=== PATIENT | female | born 1945 | race Caucasian/White ===

== ENCOUNTER 2022-07-20 12:34 | Outpatient (CLI) | payer MEDICARE, SELFPAY ==
--- NOTE | 2022-07-20 13:15 | ECG_ITS ---
Measurements Intervals [place] Rate: 56 P: 57 MT: 170 QRS: -4 QRSD: 98 T: 36 QT: 416 QTc: 403 Interpretive Statements SINUS BRADYCARDIA LOW-VOLTAGE QRS IN LIMB LEADS INCOMPLETE RIGHT BUNDLE BRANCH BLOCK BORDERLINE ECG NO PREVIOUS ECG AVAILABLE FOR COMPARISON Electronically Signed On 07-20-2022 15:23:00 CDT by Krystian Crowley M.D.
== END 2022-07-20 12:35 | disposition home or self-care (01) ==
LOC: ANHIMG 12:42
PROVIDERS: PCP Family Medicine; Visit Provider Physician Assistant Medical
DX: R06.00 Dyspnea, unspecified (principal); I45.19 Other right bundle-branch block
CPT/HCPCS: 93005

== ENCOUNTER 2023-09-23 14:15 | Emergency (ER) | payer MEDICARE, SELFPAY ==
[2023-09-23 14:19] VITALS: BP 213/88; PULSE 86; RESP 16; TEMP 37.4; O2SAT 96
[2023-09-23 15:32] VITALS: BP 172/91; PULSE 80; RESP 17; O2SAT 97
--- NOTE | 2023-09-23 17:05 | ED.EPISTAXIS ---
HPI - Epistaxis General Chief complaint: Epistaxis Stated complaint: nose bleeds Time Seen by Provider: 09/23/23 16:03 History of Present Illness HPI Narrative: This 78-year-old female, with no significant past medical history, who presents to the emergency department complaining of intermittent nosebleeds for the past days. She states she her bleeds have stopped with direct pressure after approximately 30 minutes. They can happen spontaneously, though also happen with crying. She states she has baseline dyspnea on exertion that has not worsened. Related Data Home Medications Medication Instructions Recorded Confirmed cholecalciferol (vitamin D3) 125 125 mcg PO DAILY 07/12/21 08/10/23 mcg (5,000 unit) capsule [id number]-[id number]-ayeybla-folic 1 tablet PO DAILY 07/12/21 08/10/23 acid 400 mcg-vit K1 20 mcg tablet (One-A-Day Women's 50 Plus) Allergies Allergy/AdvReac Type Severity Reaction Status Date / Time amoxicillin AdvReac Unknown Nausea and Verified 09/23/23 15:29 Vomiting clavulanic acid AdvReac Unknown Nausea and Verified 09/23/23 15:29 Vomiting Review of Systems Review of Systems: CONSTITUTIONAL: Denies fever, chills, or sweats. ENT: Intermittent epistaxis Denies rhinorrhea, congestion, sore throat, or otalgia. CARDIOVASCULAR: Denies chest pain, palpitations, or edema. RESPIRATORY: Baseline dyspnea on exertion Denies cough GASTROINTESTINAL: Denies abdominal pain, nausea, vomiting, or diarrhea. NEUROLOGIC: Denies headache, numbness, dizziness, or weakness. PSYCHIATRIC: Denies anxiety or depression. [facility] Past Medical History Medical History (Updated 09/24/23 @ 01:51 by Ralph Estrada MD) Anxiety Depression Dyspnea Fatigue Hypertension Ovarian tumor Shortness of breath Surgical History Surgical History H/O arthroscopic knee surgery H/O: hysterectomy Family History Family History Sibling Family history of condition Patient's sister is Father Family history of coronary artery disease Patient's father is Mother Family history of malignant neoplasm of ovary Patient's mother is Social History Social History Smoking status: Former smoker Second hand tobacco smoke exposure: Yes Smoking end date: 08/30/19 Additional smoking assessment comments: 30+ pack year Alcohol intake: current Drinks per week: 2 Substance use: never Substance use type: does not use Exam Narrative: GENERAL: Well-developed, well-nourished, and in no acute distress. HEAD: Normocephalic, atraumatic. EYES: PERRLA and EOMI. ENT: There appears to be a small area of erythematous friable tissue at the right nare. There is small amount dried blood at the right nare without active bleeding. Nares clear, no rhinorrhea or epistaxis. Mucous membranes moist. Oropharynx without tonsillar hypertrophy exudate or other lesions. CHEST: Clear to auscultation. No respiratory distress. No wheezes rales or rhonchi HEART: Regular rate and rhythm. No murmur heard. Normal peripheral pulses. EXTREMITIES: Normal range of motion. No edema. NEURO: Alert and oriented x3. No focal deficit. Moving all 4 limbs spontaneously PSYCH: Normal mood and affect. Course Course Emergency Course: 17:29 - Exam demonstrates friable appearing tissue in the right near ease. The patient does not have any active ongoing bleeding and with bleeding stopping with direct pressure, will discharge with recommendation for saline nasal spray and follow up with a primary care doctor. Discussed return and emergency precautions including signs/symptoms of symptomatic anemia and airway compromise. The patient voiced understanding and is comfortable with the plan. All questions answered to her satis
[2023-09-23 17:07] VITALS: BP 156/76; PULSE 68; RESP 20; O2SAT 97
== END 2023-09-23 17:44 | disposition home or self-care (01) ==
PROVIDERS: Emergency Provider Preventive Medicine Aerospace Medicine; PCP Family Medicine
DX: R04.0 Epistaxis (principal); I10 Essential (primary) hypertension; Z87.891 Personal history of nicotine dependence
CPT/HCPCS: 99283

== ENCOUNTER 2024-07-23 14:37 | Outpatient (CLI) | payer MEDICARE, SELFPAY ==
[2024-07-23 14:56] LABS: Basophils Absolute Auto 0.1 K/mm3 (0.0-0.1); Eosinophils Absolute Auto 0.3 K/mm3 (0-0.3); Eosinophils Percent Auto 4.1 % (0-4.4); Hematocrit 38.8 % (37.0-47.0); Hemoglobin 12.9 g/dL (12.0-15.0); Immature Granulocyte Absolute 0.01 K/mm3 (0.00-0.031); Immature Granulocyte Percent A 0.1 % (0-0.5); Lymphocytes Absolute Auto 2.03 K/mm3 (0.9-3.2); Lymphocytes Percent Auto 29.7 % (18.3-44.2); Mean Corpuscular HGB Conc 33.2 g/dl (32-36); Mean Corpuscular Volume 99.2 fl (80-100); Mean Platelet Volume 9.9 fl (7.4-10.4); Monocytes Absolute Auto 0.9 K/mm3 (0.1-0.6); Monocytes Percent Auto 13.5 % (2.6-8.5); Neutrophils Absolute Auto 3.5 K/mm3 (1.3-6.7); Neutrophils Percent Auto 51.6 % (45.5-73.1); Platelet Count Result 203 k/mm3 (150-375); Red Blood Count 3.91 M/mm3 (4.2-5.4); Red Cell Distribution Width 13.2 % (11.5-14.5); White Blood Count 6.8 K/mm3 (4.5-10.0)
[2024-07-23 15:17] LABS: Alanine Aminotransferase 30 U/L (6-35); Albumin Level 4.1 g/dL (3.5-5.1); Alkaline Phosphatase 74 U/L (38-126); Anion Gap 6 mmol/L (4-12); Aspartate Amino Transferase 43 U/L (14-36); Blood Urea Nitrogen 16 mg/dL (7-17); Calcium 9.1 mg/dL (8.4-10.2); Carbon Dioxide 30 mmol/L (22-30); Chloride 102 mmol/L (98-107); Cholesterol 175 mg/dL (0-200); Estimated Glomerular Filt Rate > 60; Glucose 95 mg/dL (65-110); HDL Direct 64 mg/dL; Potassium 3.9 mmol/L (3.4-5.0); Sodium 138 mmol/L (137-145); Triglycerides 64 mg/dL (<150)
[2024-07-23 15:28] LABS: LDL Cholesterol Direct 72 mg/dL
[2024-07-23 15:48] LABS: Free T4 Free Thyroxine 1.06 ng/mL (0.78-2.19)
== END 2024-07-23 14:38 | disposition home or self-care (01) ==
LOC: ANHLAB 14:41
PROVIDERS: PCP Family Medicine; Visit Provider Student in an Organized Health Care Education/Training Program
DX: R53.83 Other fatigue (principal); I10 Essential (primary) hypertension
CPT/HCPCS: 36415; 80053; 80061; 84439; 84443; 85025